=== PATIENT | female | born 1985 | race Caucasian/White ===

== ENCOUNTER 2018-12-09 08:50 | Day surgery (SDC) | payer BC ==
[2018-12-09] VITALS (8 sets, daily range): BP systolic 92–116; BP diastolic 55–88
[~2018-12-09] VITALS: Ht 170.2 cm; Wt 56.7 kg
[~2018-12-09 08:50] MED LIST: ONE DAILY FOR1 EACH ORAL; ZINC50 M1 ORAL; ceFAZolin sod 1 GM in NS 55 ML IVPB ONE
[2018-12-09] MEDS ORDERED: MAGNESIUM250 M2 PO (09:18)
[2018-12-09] MEDS ORDERED: NUVARING VAGIN1 EAC1 VG (09:58)
[2018-12-09] MEDS ORDERED: Midazolam 2mg/2ml Inj ONE (10:20)
[2018-12-09] MEDS ORDERED: fentaNYL 100 mcg/2 mL IV ONE (10:20)
--- NOTE | 2018-12-09 10:20 | Pre-Procedure Note/Attestation ---
Pre-Procedure Note/Attestation Complete Prior to Procedure Planned Procedure: left Procedure Narrative: correction of painful bunion with osteotomy and screw fixation , maria del rosario osteotomy with staple fixation left foot Indications for Procedure Pre-Operative Diagnosis: painful left HAV with bunion Attestation I attest that I discussed the nature of the procedure; its benefits; risks and complications; and alternatives (and the risks and benefits of such alternatives ), prior to the procedure, with the patient (or the patient's legal insurance healthcare representative). I attest that, if there was a reasonable possibility of needing a blood transfusion, the patient (or the patient's legal insurance healthcare representative) was given the [facility] standardized written summary, pursuant to the Bhaun Sheila Blood Safety Act ([place] Health and Safety Code # 1645, as amended). I attest that I re-evaluated the patient just prior to the surgery and that there has been no change in the patient's H&P, except as documented below: Eliceo Agosto DPM Dec 09, 2018 10:20
[2018-12-09] MEDS ORDERED: Lidocaine 1% MPF 10mg/ml 5ml ONE (10:22)
[2018-12-09] MEDS ORDERED: Propofol 200mg/20ml IV ONE (10:22)
[2018-12-09] MEDS ORDERED: NS Irrig 1000ml ONE (10:30)
[2018-12-09] MEDS ORDERED: LR 1000ml ONE (10:30)
[2018-12-09] MEDS ORDERED: Sterile Water Irrig 1000ml IRRIG ONE (10:30)
[2018-12-09] MEDS ORDERED: TransDerm Scop 1mg/72HR Patch TDERMAL ONE (10:32)
[2018-12-09] MEDS ORDERED: Dexamethasone 4mg/ml vial ONE (10:32)
[2018-12-09] MEDS ORDERED: Lidocaine 1% Plain 30 ml INJ ONE (10:32)
[2018-12-09] MEDS ORDERED: Bupivacaine 0.25% Inj 30ml INJ ONE (10:32)
[2018-12-09] MEDS ORDERED: Bacitracin 50000 Units Vial ONE (11:00)
[2018-12-09] MEDS ORDERED: Bacitracin Oint 15gm Tube TOPIC ONE (11:00)
[2018-12-09] MEDS ORDERED: LR 1000ml 1,000 ML IVLG SCH (11:11)
--- NOTE | 2018-12-09 11:11 | Anethesia Preoperative Eval ---
Anesthesia Pre-op PMH/ROS General Date of Evaluation: Dec 09, 2018 Time of Evaluation: 10:26 Anesthesiologist: Eric ASA Score: ASA 2 Mallampati Score Class I : Soft palate, uvula, fauces, pillars visible Class II: Soft palate, uvula, fauces visible Class III: Soft palate, base of uvula visible Class IV: Only hard plate visible Mallampati Classification: Class II Surgeon: Surendra Diagnosis: L foot bunion Surgical Procedure: L foot bunionectomy Anesthesia History: none Family History: no anesthesia problems Allergies: Coded Allergies: No Known Allergies (Unverified , 12/09/18) Medications: see eMAR Patient NPO?: Yes Past Medical History Cardiovascular: Denies: HTN, CAD, AK, valve dz, arrhythmia, other Pulmonary: Denies: asthma, COPD, TIO, other Gastrointestinal/Genitourinary: Reports: GERD - mild; Denies: CRI, ESRD, other Neurologic/Psychiatric: Denies: dementia, CVA, depression/anxiety, TIA, other Endocrine: Denies: DM, hypothyroidism, steroids, other HEENT: Denies: cataract (L), cataract (R), glaucoma, LA JOLLA (L), LA JOLLA (R), other Hematology/Immune: Denies: anemia, DVT, bleeding disorder, other Musculoskeletal/Integumentary: Denies: OA, RA, DJD, DDD, edema, other PMH Narrative: as above PSxH Narrative: none Anesthesia Pre-op Phys. Exam Physician Exam Last Vital Signs Date Time Temp Pulse Resp B/P (MAP) Pulse Ox O2 Delivery O2 Flow Rate FiO2 12/09/18 09:30 97.0 67 18 92/55 100 Room Air Constitutional: NAD Neurologic: CN 2-12 intact Cardiovascular: RRR, no M/R/G Respiratory: CTA Gastrointestinal: S/NT/ND Airway Exam Mallampati Score: Class II MO: full Neck: flexible ROM: full Teeth: intact Dentures: no upper, no lower Anesthesia Pre-op A/P Labs see chart Urine Test Test 12/09/18 09:05 Urine HCG, Qualitative Negative (NEGATIVE) Risk Assessment & Plan Assessment: ASA 2 Plan: GA with LMA PONV prevention Status Change Before Surgery: No Pre-Antibiotics Drug: Ancef 1gr. Given Within 1 Hr of Incision: Yes Time Given: 10:50 Vakulenko,Juaquin MD Dec 09, 2018 11:11
[2018-12-09] MEDS ORDERED: Meperidine 50mg/ml Inj(FOR RIGORS ONLY) IV PRN (11:15)
[2018-12-09] MEDS ORDERED: DiphenhydrAMINE 50mg/ml Inj IVP PRN (11:15)
[2018-12-09] MEDS ORDERED: TransDerm Scop 1mg/72HR Patch TDERMAL SCH (11:15)
[2018-12-09] MEDS ORDERED: Metoclopramide 10mg/2ml Inj IVP PRN (11:15)
[2018-12-09] MEDS ORDERED: Ketorolac 30mg Inj IV PRN (11:15)
[2018-12-09] MEDS ORDERED: ePHEDrine 50mg/ml Inj ONE (11:24)
[2018-12-09] MEDS ORDERED: Sodium Chloride 10ml vial INJ ONE (11:24)
--- NOTE | 2018-12-09 11:45 | Diagnostic Imaging Report ---
Indication: Foot pain Technique: 3 views left foot Comparison: none Findings: There is marked hallux valgus, mild metatarsus adductus. No acute fractures. No dislocations. The joint spaces are preserved Impression: Marked hallux valgus No acute process
[2018-12-09] MEDS ORDERED: Ketorolac 30mg Inj ONE (12:30)
--- NOTE | 2018-12-09 12:41 | Brief Operative Note ---
Immediate Post Operative Note Operative Note Pre-op Diagnosis: painful left HAV with bunion Procedure: left painful bunion correction with distal head osteotomy and screw fixation, maria del rosario osteotomy with stable fixation left foot Post-op Diagnosis: same as pre-op Post-op Diagnosis: same as pre-op Surgeon: eliceo agosto Anesthesiologist: dr maher Anesthesia: general Specimen: yes Complications: none Condition: stable Fluids: 01 Estimated Blood Loss: none Drains: none Tourniquet time: 95 Implant(s) used?: Yes Eliceo Agosto DPM Dec 09, 2018 12:41
--- NOTE | 2018-12-09 12:45 | Brief Operative Note ---
Immediate Post Operative Note Operative Note Pre-op Diagnosis: painful left HAV with bunion Procedure: left painful bunion correction with distal head osteotomy and screw fixation, maria del rosario osteotomy with stable fixation left foot Post-op Diagnosis: same as pre-op Post-op Diagnosis: same as pre-op Surgeon: eliceo agosto Anesthesiologist: dr krishnamurthy Anesthesia: general Specimen: yes Complications: none Condition: stable Fluids: 0 Estimated Blood Loss: none Drains: none Tourniquet time: 95 Implant(s) used?: Yes Eliceo Agosto DPM Dec 09, 2018 12:45
--- NOTE | 2018-12-09 12:49 | Immediate Post-Op Evaluation ---
Immediate Post-Op Evalulation Immediate Post-Op Evalulation Procedure: L foot bunionectomy Date of Evaluation: Dec 09, 2018 Time of Evaluation: 12:48 IV Fluids: 1200 Blood Products: none Estimated Blood Loss: min Urinary Output: none Blood Pressure Systolic: 112 Blood Pressure Diastolic: 68 Pulse Rate: 82 Respiratory Rate: 20 O2 Sat by Pulse Oximetry: 99 Temperature (Fahrenheit): 98.1 Pain Score (1-10): 1 Nausea: No Vomiting: No Complications none Patient Status: awake, patent, none Hydration Status: adequate Juaquin Reyes MD Dec 09, 2018 12:49
--- NOTE | 2018-12-09 13:19 | 48 Hour Post Anesthesia Eval ---
Post Anesthesia Evaluation Procedure: L foot bunionectomy Date of Evaluation: Dec 09, 2018 Time of Evaluation: 13:18 Blood Pressure Systolic: 106 0: 52 Pulse Rate: 74 Respiratory Rate: 20 Temperature (Fahrenheit): 98.0 O2 Sat by Pulse Oximetry: 98 Airway: patent Nausea: No Vomiting: No Pain Intensity: 1 Hydration Status: adequate Cardiopulmonary Status: stable Mental Status/LOC: patient returned to baseline Follow-up Care/Observations: n/a Post-Anesthesia Complications: none Follow-up care needed: ready to discharge Juaquin Reyes MD Dec 09, 2018 13:19
--- NOTE | 2018-12-09 14:45 | Diagnostic Imaging Report ---
Indication: Postoperative Technique: 3 views left foot Comparison: none Findings: Interim osteotomy of the distal first metatarsal, with resultant resolution of previously demonstrated hallux valgus. A surgical screw is seen reducing the osteotomy. There is also evidence of osteotomy of the first proximal phalanx, with a surgical staple in place. Retained air from the surgical exposure is seen within the soft tissues. No acute fractures. No dislocations. The joint spaces are preserved Impression: Postsurgical left foot, as described. No unusual features
--- NOTE | 2018-12-09 17:15 | Pre-op HX & Phy Repo 2 SIG ---
DATE OF ADMISSION: 12/09/2018 Surgery scheduled for 12/09/2018 at [facility]. HISTORY OF PRESENT ILLNESS: This is a 33-year-old female complaining of left foot pain and deformity for the past few years, but states that the pain has been progressively getting worse for the past 6 months. The pain mostly is in the first MPJ. The patient has tried conservative measures including padding, offloading, NSAIDs, icing, but continues to have daily pain. She reports no recent illnesses, recurrent nausea, vomiting, chills, or shortness of breath. The patient is scheduled to have surgery today at [facility]. PAST MEDICAL HISTORY: None pertinent. PAST SURGICAL HISTORY: Denies. ALLERGIES: No known drug allergies. SOCIAL HISTORY: Denies illicit drugs. FAMILY HISTORY: No pertinent findings. PHYSICAL EXAMINATION: VITAL SIGNS: Temperature is 98.3 degrees, pulse is 70, respiratory rate is 16, blood pressure is 120/82, and O2 saturation is 99.9 on room temperature. DERMATOLOGICAL: There are no open lesions. Mild hyperkeratotic lesion at the plantar first MPJ, left foot. There is a prominent medial eminence also. VASCULAR: Dorsalis pedis and posterior artery are palpable. No edema. MUSCULOSKELETAL: Bony prominence to the medial side of the left foot is noticeable. It is noticed that the hallux is abutting to the second toe and there is a large medial prominence. The prominence is painful to palpation. There is full muscle strength. There is decrease in motion of the first MPJ, but there is no crepitation noticed. There is mild tracking also noticed. ASSESSMENT AND PLAN: This is a 33-year-old female with painful left foot deformity secondary to body inflammation. The patient has tried conservative measures; however, she still has excessive daily pain. Recommended surgery as a next extensive management. The risks, benefits, and alternatives were discussed with the patient in detail, who understands and wants to proceed with the surgical intervention. All pertinent questions have been addressed and answered. The patient is scheduled for surgery today at [facility]. Eliceo Agosto D.P.M. DR: LUISITO JOB#: [id number] CC:
--- NOTE | 2018-12-10 03:30 | Operative Note - Dictated ---
DATE OF OPERATION: 12/09/2018 SURGEON: Eliceo Agosto DPM. ANESTHESIOLOGIST: . PREOPERATIVE DIAGNOSIS: Left hallux abductovalgus with medial eminence. POSTOPERATIVE DIAGNOSIS: Left hallux abductovalgus with medial eminence. HEMOSTASIS: Pneumatic ankle tourniquet at 250 mmHg. TITLE OF THE SURGERY: 1. Correction of painful bunion left foot with osteotomy screw fixation. 2. Jarad osteotomy with staple fixation. ESTIMATED BLOOD LOSS: Negligible. MATERIALS USED: A 24 mm 3-0 cannulated Vilex screw, 8 x 8 x 8 staple for Vioxx, 2-0 Vicryl, 3-0 Vicryl, 4-0 Vicryl,4-0 nylon. INJECTABLE: A 20 mL of 0.5% Marcaine and 1% lidocaine in the ratio of 1:1 was injected into the left foot in a Lan fashion block at the first MPJ. Postoperatively, 2 mL of dexamethasone and 8 mL of 0.25% Marcaine was given for postoperative pain management and decrease inflammation and pain management. PATHOLOGY: Bone resected from the medial eminence of the left foot was sent for pathology and further study. DRESSING: The incision was covered using Xeroform, bacitracin ointment, Kerlix, Coban. COMPLICATION: None. CONDITION: Stable. DESCRIPTION OF THE PROCEDURE IN DETAIL: The patient was brought into the operating room and placed on the operating table in supine position. She was well padded to avoid any excessive pressure. The patient was then given 1 gram of Ancef before the start of the surgery. At this time, a time-out performed. A cotton well-padded pneumatic ankle tourniquet was then placed about the patient's left ankle. Local anesthesia block was administrated using 20 mL of 1:1 mixture of 0.25% plain Marcaine and 1% plain lidocaine. The foot was then scrubbed and prepared in the usual aseptic manner. Attention was then directed to the left foot where a pneumatic ankle tourniquet was inflated to 250 mmHg after the foot. At this time, a preplanned incision was made on the left foot concentric at the dorsal medial eminence of the bunion controlling the deformity. The incision was deepened through subcutaneous tissue. All vital signs were inspected and all bleeders were cauterized and retracted from the field. At this time, the capsule was exposed, a linear capsulotomy was performed to expose the head of the metatarsophalangeal joint. changes as well as hypertrophic bone and coccyx defect was noticed to the head of the transmetatarsal left. There we also noticed there are multiple chondral lesion after cartilage on the lateral and medial plantar MPJ head. After the capsule was retracted using a sagittal saw, a portion of the medial eminence was osteotomized and passed off the field. At this time, it was noticed that there was some dorsal exostosis. The dorsal exostosis was also osteotomized using sagittal saw. At this time, attention was directed to the lateral side of the MPJ. The lateral release was done through the original incision. At this time, attention was directed to the plantar adhesion of the sesamoid where there were freed up. It was also noted that the sesamoid went from a more lateral displaced attachment to a more corrected medial position. At this time, a preplanned osteotomy, a V-shaped modified [place] was done with an apex failing distally and the base facing proximally. The osteotomy was carried down. Capital fragment was created. The capital fragment was then shifted approximately 4 mm to the lateral position. It was now just that there was good alignment between the metatarsal head and the base of the proximal phalanx. At this time using the premeasured K-wire, the K-wire was driven from the head of the proximal phalanx dorsally to plantarly exiting off the capital fragment crossing at. The premeasured K-wire was then seen measured and a 24 mm cannulated screw was inserted going through the K-wire. Immediate compression of the head of the first metatarsal was noticed. At this time, it was noticed that the patient would benefit from an Jarad procedure to be done under anesthesia. The proximal shaft of the left proximal phalanx was exposed. using a sagittal saw, a linear cut was made from medial to lateral, but not crossing the lateral side. A second osteotomy approximately 2 mm in angle from the first osteotomy was done to create a was then removed. At this time using the stable fixation, the premeasured template was applied under proximal and the distal side of the osteotomy on the medial side of the phalanx. Usinsg premeasured drill, an 8 mm half drill was done to the first osteotomy and distally to the second osteotomy and 8 x 8 x 8 staple was pushed again to the side as to close the wedge. There was noticed great compression upon closure. The staple was capped for drain to create compression. It is noticed that the proximal phalanx is much more aligned with 2 mm shortening was attempted on its medial side. At this time, the attention was directed to the medial capsule where a wedge of capsule was excised from dorsal to plantar creating more of a tightening of the capsule on the medial side. The capsulorrhaphy was done using a 2-0 Vicryl. At this time, the area was washed using normal saline with bacitracin and subsequently the capsule was closed using 2-0 nylon. Subcutaneous tissue was then closed using 3-0 Vicryl. More superficial tissue was closed using 4-0 Vicryl and subsequently the skin was closed using 4-0 nylon. At this time, a dressing consists of Xeroform, bacitracin ointment, 4 x 4, Maira, and Coban was applied. It should be mentioned that before the closure, a postoperative injection consisting of 8 mL of dexamethasone in combination with 8 mL of 0.5% Marcaine was given in the area for postoperative pain management. Upon completion of the dressing, the tourniquet was deflated and and immediate hyperemia noticed to digits 1 through 5. The patient tolerated the procedure and anesthesia well. She will be transferred from the operating room to recovery room awaiting clearance from anesthesia. Instructions were given to the patient both verbally and written and followup instruction with Dr. Agosto. Eliceo Agosto D.P.M. DR: RUBIO JOB#: [id number] CC:
== END 2018-12-09 14:00 | disposition home or self-care (01) ==
LOC: SUR 08:50
DX: M20.12 Hallux valgus (acquired), left foot (principal); K21.9 Gastro-esophageal reflux disease without esophagitis
CPT/HCPCS: 28298; 73630; 81025; 97161; C1713; J0690; J1100; J1885; J2001; J2250; J2405; J2704; J3010; J3490; 94003; 94150